=== PATIENT | male | born 1950 | race Caucasian/White ===

== ENCOUNTER → 2021-08-07 01:02 | Outpatient (CLI) | payer MEDICARE, SELFPAY ==
[2021-08-08 23:19] LABS: SARS-CoV-2 RNA PCR Positive
== END ==
PROVIDERS: PCP Family Medicine; Visit Provider Family Medicine
DX: U07.1 COVID-19 (principal)
CPT/HCPCS: C9803; U0003; U0005

== ENCOUNTER 2021-12-17 12:48 | Outpatient (CLI) | payer MEDICARE, SELFPAY ==
[2021-12-17 13:10] VITALS: PULSE 58; O2SAT 90
[2021-12-17 13:15] VITALS: PULSE 72; O2SAT 86
[2021-12-17 13:20] VITALS: PULSE 72; O2SAT 87
[2021-12-17 13:25] VITALS: PULSE 78; O2SAT 88
[2021-12-17 13:30] VITALS: PULSE 80; O2SAT 90
[2021-12-17 13:45] VITALS: PULSE 62; O2SAT 90
--- NOTE | 2021-12-17 16:10 | HOMEO2EVAL ---
Evaluation was performed at [facility] Home Oxygen Evaluation RC: Home Oxygen (O2) Evaluation Start: 12/17/21 16:06 Freq: Status: Active Protocol: RPE Activity Type Activity Date Activity User E-sign Co-sign Detail Recorded Client Recorded Date Recorded By Document 12/17/21 13:10 DJO [email or web address] 12/17/21 16:10 DJO Document 12/17/21 13:15 [email or web address] [email or web address] 12/17/21 16:10 DJO Document 12/17/21 13:20 [email or web address] [email or web address] 12/17/21 16:10 DJO Document 12/17/21 13:25 DJO [email or web address] 12/17/21 16:10 DJO Document 12/17/21 13:30 DJO [email or web address] 12/17/21 16:10 DJO Document 12/17/21 13:45 [email or web address] [email or web address] 12/17/21 16:10 DJO 12/17/21 12/17/21 12/17/21 13:10 13:15 13:20 Home O2 Evaluation Test Phase Resting Exercise Exercise Oxygen Delivery Room Air Room Air Nasal Cannula Oxygen Flow Rate (L/min) 1 Pulse Oximetry (90-100 %) 90 86 L 87 L Pulse Rate (60-100 beats/min) 58 L 72 72 Activity Tolerance Treatment Charges O2 Evaluation - Outpatient 12/17/21 12/17/21 12/17/21 13:25 13:30 13:45 Home O2 Evaluation Test Phase Exercise Exercise Resting Oxygen Delivery Nasal Cannula Nasal Cannula Room Air Oxygen Flow Rate (L/min) 2 3 Pulse Oximetry (90-100 %) 88 L 9 L 90 Pulse Rate (60-100 beats/min) 78 80 62 Activity Tolerance Poor Treatment Charges
== END 2021-12-17 12:49 | disposition home or self-care (01) ==
LOC: ANHPFT 12:50
PROVIDERS: PCP Family Medicine; Visit Provider Nurse Practitioner Family
DX: R06.02 Shortness of breath (principal)
CPT/HCPCS: 94618

== ENCOUNTER 2022-09-14 10:29 | Outpatient (CLI) | payer MEDICARE, SELFPAY ==
[2022-09-14 18:59] LABS: Basophils Absolute Auto 0.1 K/mm3 (0.0-0.1); Basophils Percent Auto 0.8 % (0.2-1.2); Eosinophils Absolute Auto 0.3 K/mm3 (0-0.3); Eosinophils Percent Auto 2.3 % (0-4.4); Hematocrit 45.1 % (42.0-52.0); Hemoglobin 14.7 g/dL (14.0-18.0); Immature Granulocyte Absolute 0.07 K/mm3 (0.00-0.031); Immature Granulocyte Percent A 0.6 % (0-0.5); Lymphocytes Absolute Auto 2.62 K/mm3 (0.9-3.2); Mean Corpuscular HGB Conc 32.6 g/dl (32-36); Mean Corpuscular Hemoglobin 30.1 pg (26-34); Mean Corpuscular Volume 92.4 fl (80-100); Mean Platelet Volume 10.8 fl (7.4-10.4); Monocytes Absolute Auto 0.9 K/mm3 (0.1-0.6); Monocytes Percent Auto 7.5 % (2.6-8.5); Neutrophils Percent Auto 66.8 % (45.5-73.1); Platelet Count Result 262 k/mm3 (150-375); Red Blood Count 4.88 M/mm3 (4.6-6.20); Red Cell Distribution Width 14.7 % (11.5-14.5); White Blood Count 11.9 K/mm3 (4.5-10.0)
[2022-09-14 19:33] LABS: Alanine Aminotransferase 25 U/L (6-50); Albumin Level 4.6 g/dL (3.5-5.1); Alkaline Phosphatase 106 U/L (38-126); Anion Gap 10 mmol/L (8-16); Aspartate Amino Transferase 30 U/L (17-59); Bilirubin,Total 0.7 mg/dL (0.2-1.3); Blood Urea Nitrogen 16 mg/dL (9-20); Calcium 9.2 mg/dL (8.4-10.2); Carbon Dioxide 29 mmol/L (22-30); Chloride 101 mmol/L (98-107); Cholesterol 108 mg/dL (0-200); Estimated Glomerular Filt Rate > 60; Glucose 70 mg/dL (65-110); HDL Direct 28 mg/dL; Potassium 3.9 mmol/L (3.4-5.0); Sodium 140 mmol/L (137-145); Triglycerides 115 mg/dL (<150)
[2022-09-14 19:44] LABS: LDL Cholesterol Direct 53 mg/dL
[2022-09-14 20:04] LABS: Prostate Specific Antigen 0.5 ng/mL (< OR = 4.0)
[2022-09-14 20:35] LABS: Creatinine Urine 203.2 mg/dL
[2022-09-14 20:43] LABS: MALB Creatinine Ratio 15.9 mg/g (0-30); Microalbumin Urine Random 32.3 mg/L (0-16.7)
== END 2022-09-14 10:30 | disposition home or self-care (01) ==
PROVIDERS: PCP Nurse Practitioner; Visit Provider Nurse Practitioner
DX: E78.5 Hyperlipidemia, unspecified (principal); Z12.5 Encounter for screening for malignant neoplasm of prostate; E11.9 Type 2 diabetes mellitus without complications; I10 Essential (primary) hypertension
CPT/HCPCS: 36415; 80053; 80061; 82043; 83036; 84153; 85025; G0103

== ENCOUNTER 2023-07-20 15:35 | Outpatient (CLI) | payer MEDICARE, SELFPAY ==
--- NOTE | ~2023-07-20 | XR_ITS ---
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 RESULT: Lines, tubes, and devices: None. Lungs and pleura: Low lung volumes with significant bronchovascular crowding. Streaky left basilar o pacities. Cardiomediastinal silhouette: Stable. Other: No acute osseous or upper abdominal finding. IMPRESSION: Low volumes with crowding and likely left basilar atelectasis. Infection is not excluded. Reviewed, dictated and finalized at location K. IN HANDLER
== END 2023-07-20 15:36 | disposition home or self-care (01) ==
PROVIDERS: PCP Family Medicine; Visit Provider Nurse Practitioner Family
DX: R06.02 Shortness of breath (principal); R06.09 Other forms of dyspnea; J44.9 Chronic obstructive pulmonary disease, unspecified; R91.8 Other nonspecific abnormal finding of lung field
CPT/HCPCS: 71046

== ENCOUNTER 2023-07-27 08:46 | Outpatient (CLI) | payer MEDICARE, SELFPAY ==
[2023-07-27 20:05] LABS: Basophils Absolute Auto 0.1 K/mm3 (0.0-0.1); Basophils Percent Auto 0.6 % (0.2-1.2); Eosinophils Absolute Auto 0.4 K/mm3 (0-0.3); Eosinophils Percent Auto 3.1 % (0-4.4); Hematocrit 45.7 % (42.0-52.0); Hemoglobin 14.1 g/dL (14.0-18.0); Immature Granulocyte Absolute 0.03 K/mm3 (0.00-0.031); Immature Granulocyte Percent A 0.3 % (0-0.5); Lymphocytes Absolute Auto 2.61 K/mm3 (0.9-3.2); Lymphocytes Percent Auto 23.4 % (18.3-44.2); Mean Corpuscular HGB Conc 30.9 g/dl (32-36); Mean Corpuscular Hemoglobin 29.6 pg (26-34); Mean Corpuscular Volume 95.8 fl (80-100); Mean Platelet Volume 10.6 fl (7.4-10.4); Monocytes Absolute Auto 0.8 K/mm3 (0.1-0.6); Monocytes Percent Auto 6.8 % (2.6-8.5); Neutrophils Absolute Auto 7.3 K/mm3 (1.3-6.7); Neutrophils Percent Auto 65.8 % (45.5-73.1); Platelet Count Result 252 k/mm3 (150-375); Red Blood Count 4.77 M/mm3 (4.6-6.20); Red Cell Distribution Width 14.5 % (11.5-14.5); White Blood Count 11.2 K/mm3 (4.5-10.0)
[2023-07-27 21:32] LABS: Alanine Aminotransferase 28 U/L (6-50); Albumin Level 3.8 g/dL (3.5-5.1); Alkaline Phosphatase 114 U/L (38-126); Anion Gap 10 mmol/L (8-16); Aspartate Amino Transferase 51 U/L (17-59); Bilirubin,Total 0.6 mg/dL (0.2-1.3); Blood Urea Nitrogen 11 mg/dL (9-20); Calcium 9.2 mg/dL (8.4-10.2); Carbon Dioxide 35 mmol/L (22-30); Chloride 94 mmol/L (98-107); Cholesterol 132 mg/dL (0-200); Estimated Glomerular Filt Rate > 60; Glucose 91 mg/dL (65-110); HDL Direct 29 mg/dL; Potassium 3.7 mmol/L (3.4-5.0); Sodium 139 mmol/L (137-145); Triglycerides 104 mg/dL (<150)
[2023-07-27 21:44] LABS: LDL Cholesterol Direct 78 mg/dL
[2023-07-27 22:22] LABS: Vitamin D 25 Hydroxy < 12.8 ng/mL
[2023-07-27 23:28] LABS: Hemoglobin A1C 6.3 % (<5.7)
== END 2023-07-27 08:47 | disposition home or self-care (01) ==
LOC: ANHGOSHLAB 08:47
PROVIDERS: PCP Family Medicine; Visit Provider Nurse Practitioner Family
DX: E78.5 Hyperlipidemia, unspecified (principal); E53.8 Deficiency of other specified B group vitamins; I10 Essential (primary) hypertension; E11.9 Type 2 diabetes mellitus without complications; J44.9 Chronic obstructive pulmonary disease, unspecified; E55.9 Vitamin D deficiency, unspecified; Z13.29 Encounter for screening for other suspected endocrine disorder
CPT/HCPCS: 36415; 80053; 80061; 82306; 82607; 83036; 84443; 85025

== ENCOUNTER 2023-10-26 11:46 | Outpatient (CLI) | payer MEDICARE, SELFPAY ==
--- NOTE | ~2023-10-26 | XR_ITS ---
XR lumbar spine 2-3V DATE: 10/26/2023 13:08 INDICATION: Chronic low back pain TECHNIQUE: AP, lateral, coned lateral lumbosacral views COMPARISON: None. FINDINGS: Osteopenia. There is 22 degrees rotatory levoscoliosis of the lumbar spine measured from L1 to L3. There is severe degenerative disc disease at L1-2, L2-3, L3-4, moderate degenerative disc disease at L4-5 and L5-S1. There is associated mild retrolisthesis at L4-5. No fracture or bone destruction is evident. The sacral lytic joints are intact. Plain status post ventral abdominal wall mesh repair. IMPRESSION: 22 degrees rotatory levoscoliosis Severe degenerative disc disease Reviewed, dictated and finalized at location B.
== END 2023-10-26 11:47 ==
PROVIDERS: PCP Family Medicine; Visit Provider Nurse Practitioner Family
DX: M54.9 Dorsalgia, unspecified (principal); M62.830 Muscle spasm of back; M41.86 Other forms of scoliosis, lumbar region; M51.36 Other intervertebral disc degeneration, lumbar region
CPT/HCPCS: 72100

== ENCOUNTER 2024-08-24 12:55 | Outpatient (CLI) | payer MEDICARE, SELFPAY ==
--- OUTSIDE RECORDS SUMMARY | 2024-08-24 12:59 | XMS_ITS | Continuity of Care Document ---
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, [address], [place], [place], [id number], [place] tel:[phone] [facility] No Information [address] Doisy Edward. [address] , [address], [place], [address], [place]. tel:[phone] Family History Family Member Type Diagnosis Age At Onset No Information Payers Payer name Insurance type Covered constitution party ID Authoriza tion(s) No Information Social History Type Description Quantity Date Captured Comments Sex Male Smoking Status No Information Chief Complaint And Reason For Visit No Information Reason For Referral Reason For Referral No Information History Of Present Illness Encounter Date Complaint History Of Prese nt Illness No Information Functional Status Date Functional Assessmen t No Information Instructions Date Instruction Additional Infor mation No Information Assessments Type Assessment Date No Information Patient Care Teams Name Effective Dates (start - stop) Status Members No Information
--- OUTSIDE RECORDS SUMMARY | 2024-08-24 12:59 | XMS_ITS | CONTINUITY OF CARE DOCUMENT ---
Author Name julieta hannahcam Address Unknown Organization [facility] Address [address] [place] [address] [address] [place] [address] Phone [phone] Care Team Providers Care Virtual Classroom Manager Name Role Phone Paola RIOS, Jose Unavailable [phone] MD Ruaon Josephine Unavailable MD Ruano Josephine Unavailable [phone] PROBLEMS Condition Status Date Provider Notes CAD s/p vision stent to RCA (09/2013) active 5 Jose Guevara MD SLEEP APNEA--on bipap active Jose Wan Hyperlipidemia active Jose Guevara MD OBESITY active Jose Guevara MD COPD active Jose Guevara MD Diabetes mellitus active Jose Guevara MD HTN essential active Jose Guevara MD ENCOUNTERS Date Type Provider Location Encounter Diag nosis - In-person encounter Office Visit Jose Guevara MD [place] [facility] - In-person encounter Office Visit Jose Guevara MD [facility] - In-person encounter Office Visit Jose Guevara MD [facility] - In-person encounter Office Visit Jose Guevara MD [facility] Hyperlipidemia - In-person encounter Office Visit Jose Guevara MD [facility] HTN essential - In-person encounter Office Visit Jose Guevara MD [facility] CAD s/p vision stent to RCA (09/2013)SLEEP APNEA--on bipapDiabetes mellitus - In-person encounter Office Visit Jose Guevara MD [facility] COPD - In-person encounter Office Visit Jose Guevara MD [facility] CAD s/p vision stent to RCA (09/2013)SLEEP APNEA--on bipapHyperlipidemiaOBESITY VITAL SIGNS Date Observation Value Provider Body Mass Index (Ratio) 43.67 kg/m2 Jerry Guevara MD blood pressure, resting Yes Tons [facility] blood pressure, diastolic 93 mm[Hg] [facility] systolic 178 mm[Hg] Ton [facility] oxygen saturation, oximetry 91 % [facility] respiratory rate E&M 16 /min [facility] pulse rate 68 /min [facility] weight E&M 322 [lb_av] [facility] height E&M 72 [in_i] [facility] temperature site temporal Harriet Tank sley temperature E&M 97.3 [degF] Harriet Tanks stuart Body Mass Index (Ratio) 42.72 kg/m2 Jerry Guevara MD pulse rate 76 /min [facility] oxygen saturation, oximetry 95 % [facility] respiratory rate E&M 16 /min Myrtlestit y Yoel weight E&M 315 [lb_av] Chastity Yoel blood pressure, diastolic 84 mm[Hg] Ch astity Yoel blood pressure, systolic 140 mm[Hg] Myrtle stity Yoel height E&M 72 [in_i] Myrtlestannelise Diallo Body Mass Index (Ratio) 44.32 kg/m2 Jerry Guevara MD blood pressure, diastolic 83 mm[Hg] Adán Negron blood pressure, systolic 160 mm[Hg] Elizabeth De La Fuente Negron oxygen saturation, oximetry 95 % Lyndsay Negron respiratory rate E&M 20 /min Maria D Negron pulse rate 65 /min Lyndsay onofre weight E&M 326.8 [lb_av] Lyndsay gutierrez height E&M 72 [in_i] Lyndsay onofre Body Mass Index (Ratio) 43.94 kg/m2 Jerry Guevara MD blood pressure, diastolic 90 mm[Hg] Da florina Karena blood pressure, systolic 152 mm[Hg] Dac ia Karena oxygen saturation, oximetry 92 % Siria Karena respiratory rate E&M 20 /min Siria V oss pulse rate 77 /min Siria Karena weight E&M 324 [lb_av] Siria Karena blood pressure, diastolic 76 mm[Hg] Ke rri Joe blood pressure, systolic 164 mm[Hg] Isabel ri Joe pulse rate 76 /min Leann Donavan lder oxygen saturation, oximetry 91 % Leann Joe respiratory rate E&M 18 /min Leann lynn Body Mass Index (Ratio) 44.34 kg/m2 [place] Isabelnfelddennis weight E&M 327 [lb_av] Leann Donavan lder Body Mass Index (Ratio) 44.34 kg/m2 [place] Gruenenfelder blood pressure, diastolic 68 mm[Hg] Ke rri Matteouenenfelder blood pressure, systolic 106 mm[Hg] Ker ri Matteouenenfelddennis pulse rate 72 /min Leann Gruenenfe lder oxygen saturation, oximetry 91 % Leann Diaz respiratory rate E&M 16 /min Leann horowitzcaroleedennis weight E&M 327 [lb_av] Leann Go er Body Mass Index (Ratio) 45.02 kg/m2 [place] [facility] blood pressure, diastolic 84 mm[Hg] Ke rri [facility] blood pressure, systolic 140 mm[Hg] Isabel ri Luisjonnkylekrystle pulse rate 72 /min Leann Go er oxygen saturation, oximetry 92 % Leann Felipejaswinderkylemidland memorial hospital respiratory rate E&M 16 /min Leann Fitzgerald lesleygraemebrattleboro memorial hospitaldennis weight E&M 332 [lb_av] Leann Go er height E&M 72 [in_i] Leann Go er blood pressure, diastolic 82 mm[Hg] Az ale Apolinar blood pressure, systolic 134 mm[Hg] Teri dominguez Apolinar pulse rate 74 /min Karin Apolinar oxygen saturation, oximetry 94 % Karin Jiang respiratory rate E&M 16 /min Karin Jiang weight E&M 326 [lb_av] Karin Apolinar ALLERGIES No Known Drug Allergies RESULTS Date Observation Value Provider Reference Range Interpretation Location platelet count 203 10*3/mm3 Rivka Gipson hematocrit, blood 44.5 % Rivka Gipson triglyceride, serum, fasting 442 mg/dL Rivka Gipson HDL cholesterol, serum 24 mg/dL Rivka Gipson lipoprotein, beta, serum, point, quantitative, calculated 110 mg/dL Rivka Gipson cholesterol, serum 222 mg/dL Rivka Gipson international normalized ratio (INR) 1.0 Rivka Gipson alanine aminotransferase (SGPT), serum 34 1/L Rivka Gipson aspartate aminotransferase (SGOT), serum 22 1/L Rivka Gipson creatinine, serum 0.61 mg/dL Rivka Gipson potassium, serum 3.8 mmol/L Rivka Gipson sodium, serum 139 mmol/L Rivka Gipson HISTORY OF MEDICATION USE Medication Status Instructions Dates Provider Indications Com ments carvedilol 6.25 mg tablet active Take 1 tablet by mouth twice a day 8 Pablo Salmon Advair Diskus 250-50 mcg/dose blister with device active once a day Jose Guevara MD Celebrex 200 mg capsule active once a day Jose Guevara MD fluticasone propionate 50 mcg/actuation spray,suspension active as directed Karin Jiang valsartan-hydroch lorothiazide 160-12.5 mg tablet active once a day Jose Guevara MD atorvastatin 40 mg tablet active once a day Jose Guevara MD ASPIRIN 81 MG ORAL TABLET active 1 tablet once a day 1 Jose Guevara MD EFFIENT 10 MG ORAL TABLET completed once daily - 7 Jose Guevara MD tamsulosin 0.4 mg capsule active once a day Karin Jiang glipizide 10 mg tablet active twice a day Jose Guevara MD SOCIAL HISTORY Date Observation Value Provider social history E&M Marital Statu s: Ximena payne is a former smoker. Smoking History: Ximena payne is a former smoker. Yves Cui social history reviewed E&M revi ewed - no changes required Yves Cui smoking, year quit 1975 [facility] number of years as a smoker 10 a [facility] smoking history, tot al pack/day 1/2 [facility] cigarette use yes [facility] smoking status Former smoker [facility] social history E&M Marital Statu s: Ximena payne is a former smoker. Smoking History: Ximena payne is a former smoker. Jose Guevara MD social history reviewed E&M revi ewed - no changes required Jose Guevara MD alcohol use no Noreen Salehue smoking, year quit 1975 Noreen Yoel number of years as a smoker 10 a Noreen Yoel smoking history, tot al pack/day 1/2 Bruceity Yoel cigarette use yes Noreen Yoel smoking status Former smoker Noreen Saleh ue social history reviewed E&M revi ewed - no changes required Jose Guevara MD alcohol use no Lyndsay Hinds anaon smoking, year quit 1975 Lyndsay Negron number of years as a smoker 10 a Lyndsay Negron smoking history, tot al pack/day 1/2 Lyndsay Negron cigarette use yes Lyndsay grimmon smoking status Former smoker Lyndsay Banegas number of grandchildren Jose Guevara MD U kimani Guevara MD social history reviewed E&M revi ewed - no changes required Jose Guevara MD alcohol use no Siria Karena smoking, year quit 1975 Siria Emiliano s number of years as a smoker 10 a Siria Karena smoking history, tot al pack/day 1/2 Siria Karena cigarette use yes Siria Karena smoking status Former smoker Siria Karena cigarette use yes Jose Wan social history reviewed E&M revi ewed - no changes required Jose Guevara MD alcohol use no Leann Go lder smoking status Former smoker Leann Hall nfelder smoking/tobacco cess ation, patient education and counseling yes Jose Guevara MD social history reviewed E&M revi ewed - no changes required Jose Guevara MD alcohol use no Leann Donavan lathamer number of years as a smoker 10 a Leann Joe smoking history, tot al pack/day 1/2 Leann Joe cigarette use yes Leann dalton smoking status Former smoker Leann clayton smoking/tobacco cess ation, patient education and counseling yes Jose Guevara MD social history reviewed E&M revi ewed - no changes required Jose Guevara MD social history E&M Marital Statu s: P atient is a former smoker. Smoking History: P atkrish is a former smoker. Jose Guevara MD alcohol use no Leann thapa number of years as a smoker 9 a Leann Diaz smoking history, tot al pack/day 3/4 Leann Joe smoking, year quit 1975 Leann urbina cigarette use yes Leann dalton smoking status Former smoker Jose Guevara MD social history E&M Marital Status: Marrie d Jose Guevara MD social history reviewed E&M reviewed Jose Guevara MD smoking, year quit 2009 Karin Cook smoking status former smoker Karin ren FUNCTIONAL STATUS Date Observation Value Provider HRA, CV Assess/Plan, Angina (inactive) Management Plan continue current therapy Jose Guevara MD HRA, CV Assess/Plan, Angina (inactive) Management Plan continue current therapy Jose Guevara MD MENTAL STATUS Date Observation Value Provider assessment of judgme nt and insight E&M Alert and oriented to time, place and person. Mood and affect are normal. Jose Guevara MD FAMILY HISTORY Family Member Condition Father Family History of Jessica ng Cancer: Father Family History of As thma: Mother Family History of Co annemarie Cancer: INSURANCE PROVIDERS Payer name Policy type / Coverage type Dexter red green party ID AARP MEDICARE ADVANTAGE ([facility] COMPLETE PPO) Other [id number] ADVANCE DIRECTIVES Name Date DISCUSSED - NO DECISION MADE TREATMENT PLAN Date Name Performer Cardiology:The patie nt is using BiPAP on a regular basis. The patient has been benefiting from therapy and should continue use. Yves Cui Cardiology:Per PCP. Per pt report, last HgA1c was around 7. Yves Cui Cardiology: H is updated medication list for this problem includes: Atorvastatin Calcium 40 Mg Oral Tablet (Atorvastatin calcium) ..... Once daily Yves Cui Cardiology:Pt report s that his BP is usually lower than this. BP today: 178/93 P rior BP: 140/84 (08/21/2018) Labs Reviewed: C reat: 0.61 (10/18/2013) C hol: 222 (10/18/2013) HDL: 24 (10/18/2013) T (10/18/2013) Yves Cui Cardiology:Appears t o be stable. Continue medical therapy. W ill repeat an echo. Yves Cui Cardiology:patient has lost 10 l bs in last year Jose Guevara MD Cardiology: B P today: 140/84 P rior BP: 160/83 (07/01/2017) Labs Reviewed: C reat: 0.61 (10/18/2013) C hol: 222 (10/18/2013) HDL: 24 (10/18/2013) T (10/18/2013) Jose Guevara MD Cardiology:cont. Atorvastatin [address] Milagro Guevara MD Cardiology:Patient h as no complaints of pain or discomfort. Recheck regadenoson stress test, as he has SOB on exertion, which although chronic, could represent angina. Will also repeat echo. Jose Guevara MD Cardiology:Remains e levated. Patient states it is not usually this high when he checks it at home. I t usually runs about 140/78. W hen checked in office a second time it was 140/62. BP today: 160/83 P rior BP: 152/90 (07/01/2016) Labs Reviewed: C reat: 0.61 (10/18/2013) C hol: 222 (10/18/2013) HDL: 24 (10/18/2013) T (10/18/2013) Jose Guevara MD Cardiology:Patient cortes mcintyre had worsening VILLEGAS since last visit. P atkrish lives a generally sedentary lifestyle so it may be due to deconditioning. H abrahan has a bleacher [employer] he sees about every 3 months and he uses an inhaler when symptoms worsen. W ill check echo to evaluate valvular function and rule out abnormalities. Jose Guevara MD Cardiology:Remains c ompliant Jose Guevara MD Cardiology:No chest pains today. S table. His updated medication list for this problem includes: Coreg 6.25 Mg Oral Tablet (Carvedilol) ..... One tab. twice daily Aspirin 81 Mg Oral Tablet (Aspirin) ..... One tab. daily Jose Guevara MD Cardiology follow up : H is updated medication list for this problem includes: Atorvastatin Calcium 40 Mg Tabs (Atorvastatin calcium) ..... Once daily Jose Guevara MD Cardiology follow up:compliant. Jose Guevara MD Cardiology follow up Jose boyd MD Cardiology follow up Jose boyd MD Cardiology follow up:Per PCP. Us kirt Guevara MD Cardiology follow up :152/90. Will add coreg 6.25mg one tab twice a day in addition to his valsartan Hctz. Jose Guevara MD Cardiology Follow up : B P today: 164/76 P rior BP: 106/68 (11/28/2014) Per pt, his systolic BP usually runs in the 140s. Jose Guevara MD Cardiology Follow up :His last H gbA1c was 9% per patient Jose Guevara MD Follow Up:rx weight loss Jose gauthier MD Follow Up: H is updated medication list for this problem includes: Atorvastatin Calcium 40 Mg Tabs (Atorvastatin calcium) ..... Once daily Jose Guevara MD Follow Up Jose Guevara MD Follow Up: H is updated medication list for this problem includes: Effient 10 Mg Tabs (Prasugrel hcl) ..... Once daily Ascriptin 325 Mg Tabs (Aspirin buf([id number])) ..... Once daily Atorvastatin Calcium 40 Mg Tabs (Atorvastatin calcium) ..... Once daily Jose Guevara MD Date Name Complete Echo Complete Echo Stress Regadenoson Complete Echo Complete Echo LIPID PANEL Complete Echo COMPREHENSIVE METABO LIC PANEL W/EGFR LIPID PANEL Carotid Duplex Bilat eral Complete Echo HISTORY OF PROCEDURES Procedure Date Procedure Name Provider Procedure Notes S tatus EKG Jose Guevara MD completed Regadenoson, 4 units Jose Guevara MD completed Cardiolite, 2 units Jose Guevara MD completed SPECT Images Gio Latham MD complet ed Stress EKG Khai Myles MD complete d EKG Jose Guevara MD completed SNOMED-CT: 53275964 Physical Exam, Performed: Pulse Exam of Foot Jose Guevara MD completed SNOMED-CT: 741956137 [id number] Current Medications Documented Jose Guevara MD completed SNOMED-CT: 96215725 Physical Exam, Performed: Pulse Exam of Foot Jose Guevara MD completed EKG Jose Guevara MD completed SNOMED-CT: [id number] Current Medications Documented Jose Guevara MD completed 6 minute walk test Jose Guevara MD c ompleted SNOMED-CT: 56022138 Physical Exam, Performed: Pulse Exam of Foot Jose Guevara MD completed SNOMED-CT: [id number] [id number] Current Medications Documented Jose Guevara MD completed EKG Jose Guevara MD completed
[2024-08-24 19:21] LABS: Basophils Absolute Auto 0.1 K/mm3 (0.0-0.1); Basophils Percent Auto 0.7 % (0.2-1.2); Eosinophils Absolute Auto 0.3 K/mm3 (0-0.3); Eosinophils Percent Auto 3.4 % (0-4.4); Hematocrit 44.2 % (42.0-52.0); Immature Granulocyte Absolute 0.03 K/mm3 (0.00-0.031); Immature Granulocyte Percent A 0.3 % (0-0.5); Lymphocytes Percent Auto 21.7 % (18.3-44.2); Mean Corpuscular HGB Conc 31.7 g/dl (32-36); Mean Corpuscular Volume 94.8 fl (80-100); Mean Platelet Volume 10.9 fl (7.4-10.4); Monocytes Absolute Auto 0.5 K/mm3 (0.1-0.6); Neutrophils Percent Auto 67.9 % (45.5-73.1); Platelet Count Result 221 k/mm3 (150-375); Red Blood Count 4.66 M/mm3 (4.6-6.20); Red Cell Distribution Width 16.3 % (11.5-14.5); White Blood Count 8.8 K/mm3 (4.5-10.0)
[2024-08-24 19:30] LABS: Add Urine Microscopic? NO; Appearance Urine Clear (Clear); Bilirubin Urine Negative (Negative); Blood Urine Negative (Negative); Color Urine Yellow (Yellow); Glucose Urine UA Negative (Negative); Ketones Urine Negative (Negative); Leukocyte Esterase Ur Negative LEU/UL (Negative); Nitrate Urine Negative (Negative); Protein Urine Negative (Negative); Specific Grav Ur 1.014 (1.001-1.035)
[2024-08-24 19:42] LABS: Hemoglobin A1C 5.7 % (<5.7)
[2024-08-24 19:49] LABS: Vitamin D 25 Hydroxy 25.8 ng/mL
[2024-08-24 19:55] LABS: Creatinine Urine 77.4 mg/dL
[2024-08-24 19:56] LABS: LDL Cholesterol Direct 54 mg/dL
[2024-08-24 20:00] LABS: Microalbumin Urine Random 9.3 mg/L (0-16.7)
[2024-08-24 20:12] LABS: Alanine Aminotransferase 16 U/L (6-50); Albumin Level 3.8 g/dL (3.5-5.1); Alkaline Phosphatase 88 U/L (38-126); Anion Gap 10 mmol/L (4-12); Aspartate Amino Transferase 23 U/L (17-59); Bilirubin,Total 0.9 mg/dL (0.2-1.3); Blood Urea Nitrogen 18 mg/dL (9-20); Calcium 9.2 mg/dL (8.4-10.2); Carbon Dioxide 34 mmol/L (22-30); Chloride 93 mmol/L (98-107); Cholesterol 98 mg/dL (0-200); Estimated Glomerular Filt Rate > 60; Glucose 53 mg/dL (65-110); HDL Direct 36 mg/dL; Potassium 4.4 mmol/L (3.4-5.0); Sodium 137 mmol/L (137-145); Triglycerides 83 mg/dL (<150)
== END 2024-08-24 12:56 | disposition home or self-care (01) ==
PROVIDERS: PCP Nurse Practitioner Family; Visit Provider Nurse Practitioner Family
DX: R30.0 Dysuria (principal); I10 Essential (primary) hypertension; E78.5 Hyperlipidemia, unspecified; E11.9 Type 2 diabetes mellitus without complications; E55.9 Vitamin D deficiency, unspecified
CPT/HCPCS: 36415; 80053; 80061; 81003; 82043; 82306; 83036; 84443; 85025